=== PATIENT | female | born 1960 | race Caucasian/White ===

== ENCOUNTER 2024-07-31 23:31 | Observation (INO) ==
--- NOTE | 2024-08-01 00:38 | Emergency Department Note ---
HPI - Abdominal Pain General Chief Complaint: Abdominal Pain Stated Complaint: NAUSEA,ABDOMINAL PAIN Source: patient Mode of arrival: walk-in Limitations: no limitations History of Present Illness HPI narrative: He 63-year-old patient walked into the ER kiritjelly stating that she was seen on 07/29/2024 in the ER here given medication for abdominal pain and ileus to include Cipro and Flagyl and follow with her PCP. Patient states she never made the follow-up secondary to working and actually has worked 16 hours today with severe pain rates a 9 out of 10 and currently still a 9 out of 10 pain patient is tearful agitated secondary to the discomfort. Feels like going [place] anything is wrong with her. Patient admits to having nausea denies any vomiting no bowel movement in the last 4 days until arrival to the ER gave her some relief but still rates a 9 out of 10 pain at this time denies any diarrhea no known ill contacts although she does work in the public. MD elicited complaint: abdominal pain Related Data Previous Rx's Medication Instructions Recorded ciprofloxacin HCl 500 mg tablet 500 mg PO BID gastroenteritis 10 11/03/23 (Cipro) days #20 tabs metronidazole 375 mg capsule 750 mg (2 x 375 mg) PO BID 11/03/23 (Flagyl) infection 10 days #40 caps metoclopramide HCl 5 mg tablet 5 mg PO Q8H nausea and vomiting 11/04/23 (Reglan) #20 tabs pantoprazole 40 mg tablet,delayed 40 mg PO BID gerd #60 tabs 11/04/23 release (Protonix) sucralfate 1 gram tablet (Carafate) 1 g PO BID abd pain 10 days #20 07/29/24 tabs Allergies Allergy/AdvReac Type Severity Reaction Status Date / Time codeine Allergy Mild Verified 08/01/24 00:11 gabapentin Allergy Mild Verified 08/01/24 00:11 Review of Systems Status of ROS 10 or more systems reviewed and unremark able except as noted in history and below Constitutional Reports: chills, fatigue, malaise and change in sleep pattern; Denies: fever or change in weight Eyes Denies: change in vision, blurry vision, blind spots or light sensitivity Ears, nose, mouth, and throat Denies: throat pain, neck pain, throat swelling, difficulty swallowing or hoarseness Cardiovascular Reports: lightheadedness; Denies: chest pain, palpitations, edema or swelling of feet/ankles Respiratory Denies: shortness of breath, cough, wheezing, stridor, pain on inspiration or change in phlegm color Gastrointestinal Reports: abdominal pain, nausea, constipation and bloating; Denies: vomiting, coffee grounds in vomit, heartburn, diarrhea, excessive passing of gas, difficulty swallowing or feeling full early Genitourinary Denies: painful urination, urinary frequency, urinary urgency or urinary incontinence Musculoskeletal Denies: back pain, neck pain, extremity pain or extremity swelling Integumentary/Breast Denies: rash, itching, redness, skin pain or skin tenderness Neurological Denies: headache, numbness in extremities, weakness in extremities, lack of coordination or dizziness Psychiatric Reports: hopelessness and irritability; Denies: anxiety, mood swings, panic attacks, change in sleep pattern, loss of interest, paranoia, memory loss, difficulty concentrating, visual hallucinations, auditory hallucinations, tactile hallucinations, suicidal ideation or homicidal ideation Endocrine Denies: excessive urination, excessive thirst, fatigue, cold intolerance or excessive sweating Hematologic/Lymphatic Denies: easy bruising, easy bleeding or enlarged lymph nodes Allergic/Immunologic Denies: hives, throat swelling, tongue swelling or facial swelling PFSH PFSH Medical History 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 Problems where you live: no known problems Highest level of school completed/degree received: high school Little interest or pleasure in doing things: not at all Feeling down, depressed, or hopeless: not at all Feel stressed/tense/nervous/anxious/difficulty sleeping: to some extent Life stressors: other Life stressor details: 1 Due to disability, difficulty making decisions: No Exam Constitutional: abnormal general appearance (tearful) (disheveled), distress noted (moderate), abnormal body habitus (overweight), no limitations and alert Vital Signs - 24 hr 07/31/24 23:31 08/01/24 00:30 08/01/24 01:30 Temperature 98.7 F Pulse Rate 101 H 98 H 96 H Respiratory Rate 20 20 19 Blood Pressure 149/86 161/89 151/82 Pulse Oximetry 100 99 97 Oxygen Delivery Me thod Room Air Room Air Room Air 08/01/24 02:30 08/01/24 03:30 08/01/24 04:30 Temperature Pulse Rate 95 H 98 H 104 H Respiratory Rate 20 20 20 Blood Pressure 149/84 154/67 162/88 Pulse Oximetry 98 98 98 Oxygen Delivery Me thod Room Air Room Air Room Air HENMT: normocephalic, head/scalp atraumatic, hearing grossly normal bilatera lly, external ears normal, EACs normal, nasal mucous membranes normal, external nose normal, oral mucous membranes normal, oropharynx normal, dentition normal and gingiva normal Eyes: PERRL, EOMs intact bilaterally, conjunctivae normal, no scleral icterus, papilledema noted, normal visual reid by confrontation, alignment normal, periorbital findings normal and no nystagmus Neck/C-Spine: visual inspection normal, trachea midline, cervical spine nontender, cervical full ROM noted and supple Lymph: no lymphadenopathy noted and no lymphedema noted Chest: inspection of chest normal, inspection of breast(s) abnormal (deferred) and palpation of breast(s) abnormal (deferred) Respiratory: breath sounds equal bilaterally, normal respiratory effort, clear to auscultation bilaterally, no wheezes, no rales, no retractions and no use of accessory muscles Cardiovascular: normal heart rate noted, regular rhythm noted, no gallop, no rub, no murmur, no JVD, no clicks, peripheral pulses 2+ throughout and no additional abnormal heart sounds Gastrointestinal: abdomen normal to inspection, abdomen soft to palpation, tender to palpation (moderate), (RLQ) and (RUQ), distended (mild), abnormal bowel sounds noted (hypoactive bowel sounds), hepatosplenomegaly noted, no masses, no pulsatile mass and no ascites Genitourinary: no CVA tenderness, bladder normal to palpation, vaginal abnormality noted (deferred) and cervical abnormality noted (deferred) Back/Pelvis: spine normal to inspection, no thoracic spine tenderness, no lumbar spine tenderness, thoracic spine ROM normal, lumbar spine ROM normal and no paraspinal muscle tenderness noted Extremities: normal to inspection, normal to palpation, no tenderness, full ROM, no joint enlargement and no deformity Neurology: bell valet II-XII intact, no movement abnormality noted, no focal motor deficit noted, sensory deficit noted, deep tendon reflexes 2+ bilaterally, gait abnormality noted (antalgic), speech normal, coordination normal, no pronator drift noted, no fasciculations noted and GCS normal Psychiatry: Mental Status Exam documented within this Exam's Psych section mental status grossly normal, oriented x3, thought process abnormality noted, cooperative, affect abnormality noted (tearful), psychomotor activity normal and memory normal Feel stressed/tense/nervous/anxious/difficulty sleeping: to some extent Life stressors: other (none) Life stressor details: current medical condition Due to disability, difficulty making decisions: No Skin: skin color abnormal Reports (pale), no rash, no lesions, no ecchymosis noted, no wounds, no lacerations, skin turgor abnormal Reports (tenting), no jaundice, no petechiae, no mottling, nails abnormality noted and no alopecia Course Course Hospital Course: Patient given Toradol was given for the discomfort did nothing for the pain remaining 9 out of 10. After about an hour patient was given morphine 1 mg and Zofran tolerated it well pain went from a 1 out of 10 down to a 7 out of 10 and tolerable patient ceased trying after the Toradol. Had second dose of morphine in the ER waiting for bed on the floor secondary to pain and was given second Zofran secondary to nausea. Vital Signs Vital signs: Vital Signs Temperature 98.7 F 07/31/24 23:31 Pulse Rate 101 H 07/31/24 23:31 Respiratory Rate 20 07/31/24 23:31 Blood Pressure 149/86 07/31/24 23:31 Pulse Oximetry 100 07/31/24 23:31 Oxygen Delivery Method Room Air 07/31/24 23:31 Temperature 98.7 F 07/31/24 23:31 Pulse Rate 104 H 08/01/24 04:30 Respiratory Rate 20 08/01/24 04:30 Blood Pressure 162/88 08/01/24 04:30 Pulse Oximetry 98 08/01/24 04:30 Oxygen Delivery Method Room Air 08/01/24 04:30 MDM - Abdominal Pain MDM Narrative Medical decision making narrative: Small bowel obstruction, gastroenteritis, pancreatitis, diverticulitis, constipation, calculus of the kidney, abdominal pain, atypical chest pain, colic, gas Differential Diagnosis Differential diagnosis: Likely abdominal pain, calculus of kidney, constipation, diverticulitis, gastroenteritis, pancreatitis, small bowel obstruction and other (ileus) Medical Records Attestation: I reviewed the patient's medical records. Lab Data Attestation: I reviewed the patient's lab results. Labs: Lab Results 08/01/24 08/01/24 Range/Units 00:01 01:00 WBC 11.2 H (4.3-9.3) K/uL RBC 4.5 (4.00-5.50) M/uL Hgb 14.4 (12.5-15.8) gm/dL Hct 43.0 (35.9-46.7) % MCV 96.0 H (81.0-93.7) fl MCH 32.0 (27.6-32.2) pg MCHC 33.4 (33.1-35.3) g/dl RDW 13.6 (11.4-14.2) % Plt Count 284 (152-353) K/uL MPV 8.1 (6.9-10.8) fl Gran % 72.9 H (47.8-71.3) % Lymph % (Auto) 19.3 L (20.0-43.0) % [place] % (Auto) 6.3 (3.6-9.8) % Eos % (Auto) 0.9 (0.4-2.8) % Baso % (Auto) 0.6 (0.1-0.85) Lymph # (Auto) 2.1 (1.1-3.1) [place] # (Auto) 0.7 L (1.1-3.1) Eos # (Auto) 0.1 (0.0-0.2) Baso # (Auto) 0.1 (0.0-0.1) Absolute Gran (auto) 8.1 H (2.3-6.0) Sodium 139 (136-145) mmol/L Potassium 4.4 (3.6-5.2) mmol/L Chloride 104.0 (98-107) mmol/L Carbon Dioxide 26 (21-32) mmol/L Anion Gap 9.0 (4-14) mEq/L BUN 26 H (7-18) mg/dL Creatinine 0.9 (0.6-1.3) mg/dL Estimated GFR 72.7 (>59.9) Glucose 119 H (70-110) mg/dL Lactic Acid 2.9 H (0.27-1.43) mmol/L Calcium 9.8 (8.5-10.1) mg/dL Total Bilirubin 0.37 (0.0-1.0) mg/dL AST 31 (15-37) U/L ALT 29 L (30-65) U/L Alkaline Phosphatase 64 (50-136) U/L Troponin I High Sens 8.50 (4.0-60.4) ng/L Total Protein 7.7 (6.4-8.2) g/dL Albumin 4.0 (3.4-5.0) g/dL Lipase 46.0 (16.0-77.0) U/L Urine Color Yellow (STRAW/YELL.) Urine Appearance Slightly cloudy (CLEAR) Ur Specific [place] 1.015 (1.001-1.035) Urine Protein 1+ (NEGATIVE) Urine Glucose (UA) Normal (NORMAL) Urine Ketones Negative (NEGATIVE) Urine Occult Blood Trace (NEG - TRACE) Urine Nitrite Negative (NEGATIVE) Urine Bilirubin Negative (NEGATIVE) Urine Urobilinogen Normal (NORMAL) Ur Leukocyte Esterase Negative (NEGATIVE) Urine RBC 2 - 5 (0 - 5) Urine WBC 5 - 10 ( 0 - 5) Ur Squamous Epith Cells Many (Negative) Amorphous Sediment Moderate (Negative) Urine Bacteria Trace (Negative) Urine Mucus Few (Negative) Fluid pH 6.5 (5 - 9) Urine Opiates Screen Neg. (NEGATIVE) Urine Methadone Screen Neg. (NEGATIVE) Barbiturate Screen Pos. (NEGATIVE) Ur Phencyclidine Scrn Neg. (NEGATIVE) Amphetamines Screen Neg. (NEGATIVE) U Benzodiazepines Scrn Neg. (NEGATIVE) Urine Cocaine Screen Neg. (NEGATIVE) U Marijuana (THC) Screen Neg. (NEGATIVE) Imaging Data Imaging ordered: other (Acute abdominal series) Attestation: I have reviewed the pertinent imaging results. ECG Data Attestation: I have reviewed the pertinent ECG results. Prior ECG tracings: available for review Interpretation: EKG-sinus rhythm, rate 83, RR 720, MT 188 Discharge Plan Discharge Patient Disposition: Admitted As Observation Condition: Stable Clinical Impression: Dehydration, Abdominal pain, UTI (urinary tract infection), Hypertension, Sinus tachycardia, Constipation, Fatty liver Time of Disposition: 05:00
[2024-08-01] MEDS: GI COCKTAIL 30 ML SOLUTION PO ONE (00:43)
[2024-08-01] MEDS: SIMETHICONE 80 MG TAB PO ONE (00:43)
[2024-08-01 00:59] LABS: PH BODY FLUID EXCP BLOOD 6.5 (5 - 9); Specific Gravity Urine 1.015 (1.001-1.035); Urine Appearance Slightly Cloudy (CLEAR); Urine Blood TRACE (NEG - TRACE); Urine Color YELLOW (STRAW/YELL.); Urine Urobilinogen Normal (NORMAL)
[2024-08-01] MEDS: KETOROLAC 30 MG/ML INJ VIAL IVP ONE (01:00)
[2024-08-01 01:04] LABS: Amphetamine Screen Urine NEG. (NEGATIVE); Cannabinoid Screen Urine NEG. (NEGATIVE); Cocaine Screen Urine NEG. (NEGATIVE); Methadone Screen Urine NEG. (NEGATIVE); Opiate Screen Urine NEG. (NEGATIVE)
[2024-08-01 01:11] LABS: Ur. Squamous Epithelial Cell Many (Negative)
[2024-08-01 01:12] LABS: Urine Amorphous Sediment Moderate (Negative)
[2024-08-01] MEDS ORDERED: 0.9 % SODIUM CHLORIDE MB+ 50 ML IV ONE (01:45)
[2024-08-01] MEDS ORDERED: CEFTRIAXONE SODIUM 1 GM VIAL ONE (01:45)
[2024-08-01] MEDS: CEFTRIAXONE SODIUM 1 GM in 0.9 % SODIUM CHLORIDE MB+ 50 ML IV ONE (01:47)
[2024-08-01 01:49] LABS: Basophils #(Absolute) Auto 0.1 (0.0-0.1); Basophils%(Percent) Auto 0.6 (0.1-0.85); Eosinophils#(Absolute)Auto 0.1 (0.0-0.2); Eosinophils%(Percent) Auto 0.9 % (0.4-2.8); Granulocytes % - Auto 72.9 % (47.8-71.3); Granulocytes#(Absolute)- Auto 8.1 (2.3-6.0); Monocytes #(Absolute)- Auto 0.7 (1.1-3.1); Monocytes %(Percent)- Auto 6.3 % (3.6-9.8); Platelet Count 284 K/uL (152-353); White Blood Count 11.2 K/uL (4.3-9.3)
[2024-08-01 01:50] LABS: Potassium 4.4 mmol/L (3.6-5.2)
[2024-08-01] MEDS: ONDANSETRON HCL/PF 4 MG/2 ML VIAL IVP ONE (02:30)
[2024-08-01] MEDS: MORPHINE SULFATE 2 MG/ML CARTRIDGE IV ONE ×2 (02:35→04:31)
[2024-08-01] MEDS: 0.9 % SODIUM CHLORIDE 1000 ML 1,000 ML IV ONE (02:35)
[2024-08-01] MEDS ORDERED: 0.9 % SODIUM CHLORIDE 1000 ML 1,000 ML IV ONE (02:42)
[2024-08-01] MEDS ORDERED: MORPHINE SULFATE 2 MG/ML CARTRIDGE IV ONE (02:43)
[2024-08-01] MEDS ORDERED: ONDANSETRON HCL/PF 4 MG/2 ML VIAL ONE (02:43)
[2024-08-01] MEDS ORDERED: MAGNESIUM, ALUMINUM HYDROXIDE 30 ML ORAL.SUSP PO PRN (05:43)
[2024-08-01] MEDS ORDERED: ACETAMINOPHEN 500 MG TABLET PO PRN (05:43)
[2024-08-01] MEDS ORDERED: DOCUSATE SODIUM 100 MG CAPSULE PO PRN (05:43)
[2024-08-01] MEDS: 0.9 % SODIUM CHLORIDE 1000 ML 1,000 ML IV SCH (06:22)
[2024-08-01] MEDS: ENOXAPARIN SODIUM 40 MG/0.4 ML SYRINGE SUBQ SCH (09:15)
[2024-08-01] MEDS: PANTOPRAZOLE SODIUM 40 MG TABLET.DR PO SCH ×2 (09:16→21:10)
[2024-08-01] MEDS: SUCRALFATE 1 GM/10 ML ORAL.SUSP PO SCH (13:20)
--- NOTE | 2024-08-01 13:27 | History & Physical Report ---
H&P: HPI History of Present Illness Chief complaint: DEHYDRATION,UTI,INTRACTABLE ABD PAIN Narrative: Ms. Madsen was admitted on 08/01/24 from the ED with complaint of abdominal pain that started tuesday and progressively got worse. She was seen in ED tuesday and told she had ileus and dehydration. She complains of pain to lower abdomen and describes it as just hurting. She did have some nausea tuesday without vomiting. She reports that her bowel movements are normally irregular however she was constipated 4 days prior to arrival and had BM this morning. WBC slightly elevated at 11 on admit. CMP and UA within normal limits. KUB does show nonobstructive gas pattern. She does admit to hx of peptic ulcers needing treatment 3 years ago. Review of Systems Status of ROS 10 or more systems reviewed and unremark able except as noted in history and below Constitutional Reports: chills, malaise and change in sleep pattern; Denies: fever, change in weight or fatigue Eyes Denies: change in vision, blurry vision, blind spots or light sensitivity Ears, nose, mouth, and throat Denies: throat pain, neck pain, throat swelling, difficulty swallowing or hoarseness Cardiovascular Reports: lightheadedness; Denies: chest pain, palpitations, edema, swelling of feet/ankles or shortness of breath with exertion Respiratory Denies: shortness of breath, cough, wheezing, stridor, pain on inspiration or change in phlegm color Gastrointestinal Reports: abdominal pain, nausea, constipation and bloating; Denies: vomiting, coffee grounds in vomit, heartburn, diarrhea, excessive passing of gas, difficulty swallowing or feeling full early Genitourinary Denies: painful urination, urinary frequency, urinary urgency or urinary incontinence Musculoskeletal Denies: back pain, neck pain, extremity pain or extremity swelling Integumentary/Breast Denies: rash, itching, redness, skin pain or skin tenderness Neurological Denies: headache, numbness in extremities, weakness in extremities, lack of coordination or dizziness Psychiatric Reports: hopelessness and irritability; Denies: anxiety, mood swings, panic attacks, change in sleep pattern, loss of interest, paranoia, memory loss, difficulty concentrating, visual hallucinations, auditory hallucinations, tactile hallucinations, suicidal ideation or homicidal ideation Endocrine Denies: excessive urination, excessive thirst, fatigue, cold intolerance or excessive sweating Hematologic/Lymphatic Denies: easy bruising, easy bleeding or enlarged lymph nodes Allergic/Immunologic Denies: hives, throat swelling, tongue swelling, facial swelling or wheezing PFSH PFSH Medical History 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 Problems where you live: no known problems Highest level of school completed/degree received: College Little interest or pleasure in doing things: not at all Feeling down, depressed, or hopeless: not at all Feel stressed/tense/nervous/anxious/difficulty sleeping: to some extent Life stressors: other (none) Life stressor details: current medical condition Due to disability, difficulty making decisions: No Gender Identity: female Meds Home Medications and Allergies Home Medications Medication Instructions Recorded Confirmed Type ciprofloxacin HCl 500 mg tablet 500 mg PO BID gastroenteritis 10 11/03/23 Rx (Cipro) days #20 tabs metronidazole 375 mg capsule 750 mg (2 x 375 mg) PO BID 11/03/23 Rx (Flagyl) infection 10 days #40 caps metoclopramide HCl 5 mg tablet 5 mg PO Q8H nausea and vomiting 11/04/23 Rx (Reglan) #20 tabs pantoprazole 40 mg tablet,delayed 40 mg PO BID gerd #60 tabs 11/04/23 Rx release (Protonix) sucralfate 1 gram tablet (Carafate) 1 g PO BID abd pain 10 days #20 07/29/24 08/01/24 Rx tabs butalbital 50 mg-acetaminophen 300 1 tab PO Q4H PRN tension headache 08/01/24 08/01/24 History mg tablet Allergies Allergy/AdvReac Type Severity Reaction Status Date / Time codeine Allergy Mild Verified 08/01/24 00:11 gabapentin Allergy Mild Verified 08/01/24 00:11 Exam Exam: Patient in bed at this time denies pain. Constitutional: normal general appearance and no apparent distress Vital Signs - 24 hr 07/31/24 23:31 08/01/24 00:30 08/01/24 01:30 Temperature 98.7 F Pulse Rate 101 H 98 H 96 H Pulse Rate [Left C arotid] Respiratory Rate 20 20 19 Blood Pressure 149/86 161/89 151/82 Blood Pressure [Le ft Arm] Pulse Oximetry 100 99 97 Oxygen Delivery Me thod Room Air Room Air Room Air 08/01/24 02:30 08/01/24 03:30 08/01/24 04:30 Temperature Pulse Rate 95 H 98 H 104 H Pulse Rate [Left C arotid] Respiratory Rate 20 20 20 Blood Pressure 149/84 154/67 162/88 Blood Pressure [Le ft Arm] Pulse Oximetry 98 98 98 Oxygen Delivery Id thod Room Air Room Air Room Air 08/01/24 05:31 08/01/24 05:34 08/01/24 08:00 Temperature 98.2 F Pulse Rate 102 H Pulse Rate [Left C arotid] 75 Respiratory Rate 20 19 Blood Pressure 152/87 Blood Pressure [Le ft Arm] 128/66 Pulse Oximetry 97 98 Oxygen Delivery Me thod Room Air Room Air HENMT: normocephalic, head/scalp atraumatic and hearing grossly normal bilaterally Eyes: PERRL, EOMs intact bilaterally and conjunctivae normal Neck/C-Spine: visual inspection normal, trachea midline and cervical spine nontender Lymph: no lymphadenopathy noted and no lymphedema noted Chest: inspection of chest normal and palpation of chest normal Respiratory: breath sounds equal bilaterally and normal respiratory effort Cardiovascular: normal heart rate noted, regular rhythm noted and no gallop Gastrointestinal: abdomen normal to inspection, abdomen soft to palpation and nontender to palpation (mild tenderness to BL quad) Genitourinary: no CVA tenderness and bladder normal to palpation Back/Pelvis: spine normal to inspection, no thoracic spine tenderness and no lumbar spine tenderness Extremities: normal to inspection, normal to palpation, no tenderness and full ROM Neurology: tubing supervisor II-XII intact, no movement abnormality noted, no focal motor deficit noted, no sensory deficits noted, deep tendon reflexes 2+ bilaterally, gait normal, speech normal, coordination normal, no pronator drift noted, no fasciculations noted and GCS normal Psychiatry: mental status grossly normal, oriented x3, thought process normal, cooperative, affect normal and memory normal Skin: skin color normal Assessment and Plan Assessment and Plan (1) Peptic ulcer: Assessment and Plan: Carafate 1gm po QID Protonix 40mg po BID Code(s): K27.9 - Peptic ulcer, site unspecified, unspecified as acute or chronic, without hemorrhage or perforation (2) Abdominal pain: Assessment and Plan: KUB Rocephin 1gm IV daily Miralax 17gm po BID Morphine 2mg qhrs prn Qualifiers: Abdominal location: lower abdomen, unspecified Qualified Code(s): R10.30 - Lower abdominal pain, unspecified Code(s): R10.9 - Unspecified abdominal pain Plan See A&P Results Labs Labs: CBC 08/01/24 Range/Units 01:00 WBC 11.2 H (4.3-9.3) K/uL RBC 4.5 (4.00-5.50) M/uL Hgb 14.4 (12.5-15.8) gm/dL Hct 43.0 (35.9-46.7) % Plt Count 284 (152-353) K/uL Gran % 72.9 H (47.8-71.3) % Lymph % (Auto) 19.3 L (20.0-43.0) % [place] % (Auto) 6.3 (3.6-9.8) % Eos % (Auto) 0.9 (0.4-2.8) % Baso % (Auto) 0.6 (0.1-0.85) Lymph # (Auto) 2.1 (1.1-3.1) [place] # (Auto) 0.7 L (1.1-3.1) Eos # (Auto) 0.1 (0.0-0.2) Baso # (Auto) 0.1 (0.0-0.1) Absolute Gran (auto) 8.1 H (2.3-6.0) CMP 08/01/24 01:00 Sodium 139 Potassium 4.4 Chloride 104.0 Carbon Dioxide 26 BUN 26 H Creatinine 0.9 Glucose 119 H Calcium 9.8 Liver Function 08/01/24 Range/Units 01:00 Total Bilirubin 0.37 (0.0-1.0) mg/dL AST 31 (15-37) U/L ALT 29 L (30-65) U/L Alkaline Phosphatase 64 (50-136) U/L Albumin 4.0 (3.4-5.0) g/dL Urine 08/01/24 00:01 Urine Color Yellow Urine Appearance Slightly cloudy Ur Specific [place] 1.015 Urine Protein 1+ Urine Glucose (UA) Normal Imaging Imaging ordered: Abdominal x-ray Radiologist's impression: Patient: Karen Madsen MR#: [id number] : 1960 Acct:[id number] Age/Sex: 63 / F ADM Date: 08/01/24 Loc: [place] 1117-[address]: Antonio Thompson NP Ordering Physician: Betty Omalley DO Date of Service: 08/01/24 Procedure(s): XR acute abdomen series Accession Number(s): [id number] cc: Antonio Thompson NP; Betty Omalley DO~ EXAM: XR ACUTE ABDOMEN SERIES HISTORY: abdominal painabdominal pain; PT C/O PAIN IN MID ABDOMEN. PT STATES IT WORSENED TONIGHT. HAS HX OF ULCERS. HX: GB, HYSTERECTOMY, APPENDECTOMY COMPARISON: CT dated 07/29/2024 TECHNIQUE: AP chest; AP abdomen supine and upright FINDINGS: Unremarkable cardiac silhouette. No focal consolidation, pleural effusion, or pneumothorax. No abnormally distended bowel loops. No significant colonic stool burden. No free peritoneal air. Metallic surgical clips in the right hemiabdomen as well as the pelvis. IMPRESSION: Nonobstructive bowel gas pattern. No free peritoneal air. THIS IS AN ELECTRONICALLY VERIFIED FINAL REPORT 08/01/2024 9:25 AM - Electronically signed by Carl Clinton MD Dictated By: Carl Clinton M.D. Signed By: 08/01/2425 DD/ TD/TT: 08/01/24 0056 Tool Machine Setup Operator:
[2024-08-01 13:59] LABS: Potassium 3.5 mmol/L (3.6-5.2)
[2024-08-01] MEDS: ONDANSETRON HCL/PF 4 MG/2 ML VIAL INJ PRN (14:29)
[2024-08-01] MEDS: MORPHINE SULFATE 2 MG/ML CARTRIDGE IV PRN (14:30)
[2024-08-01] MEDS: CEFTRIAXONE SODIUM 1 GM in 0.9 % SODIUM CHLORIDE MB+ 50 ML IV SCH (16:33)
[2024-08-01] MEDS: polyethylene glycoL 3350 17 GM POWD.PACK PO SCH (21:10)
[2024-08-02] MEDS: 0.9 % SODIUM CHLORIDE 1000 ML 1,000 ML IV SCH (03:36)
[2024-08-02 04:44] VITALS: RESP 19
--- NOTE | 2024-08-02 08:23 | Discharge Summary ---
DS: Providers Provider Date of admission: 08/01/24 05:11 Primary care physician: Yenny Perez DS: Diagnosis Discharge Diagnosis (1) Peptic ulcer: (2) Abdominal pain: Qualifiers: Abdominal location: lower abdomen, unspecified Qualified Code(s): R10.30 - Lower abdominal pain, unspecified DS: Summary Hospital Course Hospital Course: Ms. Madsen was admitted on 08/01/24 from the ED with complaint of abdominal pain that started tuesday and progressively got worse. She was seen in ED tuesday and told she had ileus and dehydration. She complains of pain to lower abdomen and describes it as just hurting. She did have some nausea tuesday without vomiting. She reports that her bowel movements are normally irregular however she was constipated 4 days prior to arrival and had BM this morning. WBC slightly elevated at 11 on admit. CMP and UA within normal limits. KUB does show nonobstructive gas pattern. She does admit to hx of peptic ulcers needing treatment 3 years ago. She was started on miralax, protonix and carafate during her stay and pain did improve for outpatient management. Patient was discharged on 08/02/24 to follow up with PCP in 1 week. Time spent discussing smoking cessation with patient: more than 10 minutes Status at Discharge Functional status at discharge: independent ambulation Overall status at discharge: patient is back to baseline Time Spent with Patient Time attestation: Total time spent providing and/or coordinating discharge services: Time spent: greater than 30 minutes Exam Exam: Patient in bed at this time denies pain. Constitutional: normal general appearance and no apparent distress Vital Signs - 24 hr 08/01/24 12:00 08/01/24 16:00 08/01/24 20:00 Temperature 98.3 F 98.5 F 97.9 F Pulse Rate [Left C arotid] 80 74 68 Respiratory Rate 19 19 17 Blood Pressure [Le ft Arm] 142/67 113/61 123/63 Pulse Oximetry 98 97 98 Oxygen Delivery Me thod Room Air Room Air Room Air Fraction of Inspir ed Oxygen 08/01/24 20:30 08/02/24 00:00 08/02/24 04:00 Temperature 98.4 F 98.3 F Pulse Rate [Left C arotid] 71 79 Respiratory Rate 18 19 Blood Pressure [Le ft Arm] 130/70 124/58 Pulse Oximetry 98 97 96 Oxygen Delivery Me thod Room Air Room Air Room Air Fraction of Inspir ed Oxygen 21 HENMT: normocephalic, head/scalp atraumatic and hearing grossly normal bilaterally Eyes: PERRL, EOMs intact bilaterally and conjunctivae normal Neck/C-Spine: visual inspection normal, trachea midline and cervical spine nontender Lymph: no lymphadenopathy noted and no lymphedema noted Chest: inspection of chest normal and palpation of chest normal Respiratory: breath sounds equal bilaterally and normal respiratory effort Cardiovascular: normal heart rate noted, regular rhythm noted and no gallop Gastrointestinal: abdomen normal to inspection, abdomen soft to palpation and nontender to palpation (mild tenderness to BL quad) Genitourinary: no CVA tenderness and bladder normal to palpation Back/Pelvis: spine normal to inspection, no thoracic spine tenderness and no lumbar spine tenderness Extremities: normal to inspection, normal to palpation, no tenderness and full ROM Neurology: engine setter II-XII intact, no movement abnormality noted, no focal motor deficit noted, no sensory deficits noted, deep tendon reflexes 2+ bilaterally, gait normal, speech normal, coordination normal, no pronator drift noted, no fasciculations noted and GCS normal Psychiatry: mental status grossly normal, oriented x3, thought process normal, cooperative, affect normal and memory normal Skin: skin color normal DS: Data Data Completed and Pending Labs on day of discharge: Labs from last 24 hours 08/01/24 13:20 Sodium 137 Potassium 3.5 L Chloride 106.0 Carbon Dioxide 28 Anion Gap 3.0 L BUN 21 H Creatinine 0.9 Estimated GFR 72.7 Glucose 99 Lactic Acid 1.5 H Calcium 8.9 Phosphorus 2.4 L Magnesium 1.9 Total Bilirubin 0.40 AST 17 ALT 23 L Alkaline Phosphatase 55 Total Protein 7.0 Albumin 3.4 Preliminary micro results at discharge 08/01/24 13:20 Blood Culture - Preliminary Blood - Venous Draw (Peripheral) 08/01/24 01:00 Blood Culture - Preliminary Blood - Venous Draw (Peripheral) Discharge Plan Discharge Disposition: Home, Self-Care Condition: Stable Discharge Medications: New sucralfate 100 mg/mL Suspension 1 g PO TID Qty: 200 0RF pantoprazole 40 mg Tablet,Delayed Release (Dr/Ec) 40 mg PO BID Qty: 20 0RF dicyclomine 10 mg capsule 10 mg PO TID Qty: 10 0RF polyethylene glycol 3350 [Miralax] 17 gram/dose powder 17 g PO DAILY Qty: 119 0RF Continued metoclopramide HCl [Reglan] 5 mg tablet 5 mg PO Q8H Qty: 20 0RF butalbital-acetaminophen 50-300 mg tablet 1 tab PO Q4H PRN (Reason: tension headache) Patient Comments: TAKE 1 TABLET BY MOUTH EVERY 4 HOURS NEEDED Discontinued ciprofloxacin HCl [Cipro] 500 mg tablet 500 mg PO BID 10 Days Qty: 20 0RF metronidazole [Flagyl] 375 mg capsule 750 mg PO BID 10 Days Qty: 40 0RF pantoprazole [Protonix] 40 mg tablet,delayed release (DR/EC) 40 mg PO BID Qty: 60 0RF sucralfate [Carafate] 1 gram tablet 1 g PO BID 10 Days Qty: 20 0RF Discharge Orders: Discharge Order (Routine); Ordered 08/02/24 Ordered By: Antonio Thompson Activity: increase activity as tolerated Interventions: Discharge Assessment Last Done: 08/02/24 10:23 MED/SURG & ICU Observation Charge Sheet Last Done: 08/02/24 10:11 Patient Instructions: Peptic Ulcer (GEN), Dehydration (GEN), Migraine Headache (GEN), Acute Nausea and Vomiting (GEN), Non-Alcoholic Fatty Liver Disease (GEN), Abdominal Pain (GEN), Hypertension (GEN), Ileus (GEN) Forms: Portal/Health Info Access Inst Follow-Ups: Yenny Perez [Primary Care Provider] - Vinod Nichols NP [Nurse Practitioner] - 08/08/24 1:15 pm Discharge Date/Time: 08/02/24 10:23
[2024-08-02 08:54] VITALS: BP 126/66; PULSE 78; TEMP 97.6
== END 2024-08-02 10:23 | disposition home or self-care (01) ==
LOC: ED 23:31 → MS 23:31
PROVIDERS: ADMIT Family Medicine; ATTEND Nurse Practitioner